=== PATIENT | male | born 1970 | race American Indian/Alaskan Native ===

== ENCOUNTER 2018-08-17 09:44 | Outpatient (CLI) | payer BC ==
--- NOTE | 2018-08-20 14:09 | Magnetic Resonance Report ---
PROCEDURE: MR LUMBAR SPINE WO CON HISTORY: LOW BACK PAIN FINDINGS: MRI of the lumbar spine was performed using sagittal T1, sagittal T2, sagittal inversion re covery, axial T1, axial T2-weighted images. These images demonstrate that the conus medullaris lies at the level of T12-L1 appears unremarkable. At L1-L2, L2-L3 and L3-L4 the intervertebral discs are normal in height and T2 signal intensity. At L4-L5, there is loss of disc T2 signal intensity. There is a small posterior disc bulge which does not result in canal stenosis. There is mild bilateral neural foraminal narrowing without nerve root impingement. There is a posterior annular fissure in the disc, axial T2-weighted image 14. At L5-S1, there is a central disc protrusion which abuts the S1 nerve roots in the central canal, lef t more than right, posteriorly displacing the left S1 nerve root. There is no evidence of impingement exiting L5 nerve roots. On the localizer images, there is a central disc protrusion at T7-T8 which effaces the anterior natividad n of the thecal sac but does not appear to result in canal stenosis or nerve root impingement. In the cervical spine there are posterior disc bulges at C5-C6 and C6-C7 which are not well-evaluated given the field of view of the localizer examination. IMPRESSION: Posterior annular fissure at L4-5 disc Central disc protrusion at L5-S1 which abuts the S1 nerve roots in the central canal and posteriorly displaces left S1 nerve root. This document is electronically signed by Prince Wilson MD., August 17 2018 01:15:44 PM ET
== END 2018-08-17 09:45 | disposition home or self-care (01) ==
LOC: MRI 09:44
PROVIDERS: ATTEND Orthopaedic Surgery
DX: M51.27 Other intervertebral disc displacement, lumbosacral region (principal); Q05.7 Lumbar spina bifida without hydrocephalus
CPT/HCPCS: 72148